=== PATIENT | female | born 2000 | race Two or more races ===

== ENCOUNTER 2023-08-27 13:20 | Emergency (ER) | payer OTHER, MEDICAID ==
[~2023-08-27] VITALS: Ht 170.2 cm; Wt 55.9 kg
[2023-08-27 17:47] LABS: Urine Bacteria NONE SEEN /hpf (None Seen); Urine Blood Negative /uL (Negative); Urine Clarity Clear (Clear); Urine Color Colorless (Yellow); Urine Mucus FEW (None Seen); Urine Protein, UAD Negative (Negative); Urine Specific Gravity 1.012 (1.001-1.035); Urine Urobilinogen Normal (Negative); Urine WBC 2 /hpf (0 - 5)
[2023-08-27 18:55] VITALS: BP 107/71; PULSE 91; RESP 16; TEMP 97.7; O2SAT 99
== END 2023-08-27 18:56 | disposition home or self-care (01) ==
LOC: ER 13:20
DX: O20.0 Threatened abortion (principal); Z3A.14 14 weeks gestation of pregnancy
CPT/HCPCS: 36415; 76805; 81001; 84702